=== PATIENT | female | born 1970 | race Caucasian/White ===

== ENCOUNTER → 2016-10-19 | Outpatient (CLI) | payer BC ==
[~2016-10-19] MED LIST: BACITAB3 PO; CLOB0.0548 TOP; CYMB1CAP5 PO; HYDR1TAB97 PO; LOW-TAB2 PO; PREM.6256 PO; PRIL40CA PO; TYLE325T5 PO; ZOFR20TA PO; [UNRECOGNIZED DRUG - CODE] PO
[2016-10-19 15:24] LABS: MEAN CORPUSCULAR HEMOGLOBIN 29.2 pg (27.0-33.0); MEAN CORPUSCULAR HGB CONC 33.8 g/dl (32.0-36.5); MEAN CORPUSCULAR VOLUME 86.4 fl (80.0-96.0); RED CELL DISTRIBUTION WIDTH 12.9 % (11.5-14.5); WHITE BLOOD COUNT 9.2 K/mm3 (4.0-10.0)
[2016-10-19 15:31] LABS: INR 0.92
== END ==
LOC: M LAB 14:53
PROVIDERS: ATTEND Physician Assistant Medical
DX: Q44.6 Cystic disease of liver (principal)

== ENCOUNTER → 2016-10-21 | Outpatient (CLI) | payer BC ==
[~2016-10-21] MED LIST changes: +ETHANOL ALCOHOL 98% INJ 5ML (DEHYDRATED) As Ordered ONE; +ISOVUE-300 61% 50ML VIAL (Q9967) As Ordered ONE; +LIDOCAINE 2% INJ 100 MG/5 ML SDV (FOR ANES.) As Ordered ONE; +LIDOCAINE 2% MDV 20 ML VIAL As Ordered ONE; +MIDAZOLAM INJ 2 MG/2 ML VIAL (J2250) As Ordered ONE; +MORPHINE 10 MG/ML 1ML VIAL As Ordered ONE; +NORCO, ANEXSIA 5/325MG TABLET (HYDROcodone/ACETAMINOPHEN) As Ordered ONE; +NORCO, ANEXSIA 5/325MG TABLET (HYDROcodone/ACETAMINOPHEN) PO ONE; +ONDANSETRON 4MG/2ML VIAL (J2405) IV PRN; +PROMETHAZINE INJ 25 MG/ML VIAL (J2550) As Ordered ONE; +PROMETHAZINE INJ 25 MG/ML VIAL (J2550) IV ONE; +PROPOFOL 200 MG/20 ML VIAL As Ordered ONE; +SODIUM BICARBONATE 8.4% INJ 50MEQ 50 ML VIAL As Ordered ONE; +dexameTHASONE 4 MG/ML 1ML VIAL (J1100) IV ONE; +fentaNYL 100 MCG/2 ML INJECTION (J3010) As Ordered ONE
--- NOTE | 2016-10-21 11:28 | REP ---
PORTABLE CHEST: AP portable view of the chest is performed. There is subsegmental atelectasis in each lung base. There is mild elevation of the right hemidiaphragm. There is no pneumothorax or acute infiltrate. Cardiomediastinal silhouette is unremarkable. IMPRESSION: No pneumothorax. Subsegmental atelectasis in the lung bases bilaterally. Signed by Long Go MD 10/21/2016 01:29 P
--- NOTE | 2016-10-21 11:48 | REPKIM ---
CLINICAL HISTORY: Large symptomatic enlarging right hepatic cyst. The patient presents for the right symptomatic hepatic cyst drainage catheter placement/ aspiration possible sclerotherapy. PROCEDURE PERFORMED: 1. Ultrasound of the liver 2. Right hepatic cyst drainage catheter placement and aspiration 3. Sinogram 4. Sclerotherapy of the right hepatic cyst INTERVENTIONALIST: June Lutz MD CONSENT: The risks, benefits and alternatives to the procedure were explained to the patient and informed written consent was obtained. SEDATION: Sedation and analgesia was provided by the Anesthesiology Dept. MEDICATIONS: Local Lidocaine 2% and absolute alcohol CONTRAST: 45 mL Isovue 300 EBL: 3 mL FLUORO TIME: 2.1 minutes DEVICE USED: 8.5F Resolve Catheter Lot #[id number] PROCEDURE: The patient was brought to the interventional radiology suite where a timeout procedure was performed. The patient was placed in the supine position. The right abdomen was prepped and draped in a usual sterile fashion. Ultrasound showed approximately 6.7cm hepatic cyst involving the right lobe of the liver below the dome of the liver. Local anesthetic was established using 2% Lidocaine. Using ultrasound guidance, a 21-gauge Accustick needle was introduced into the right hepatic cyst, after infiltration of the skin and deep tissues with local anesthetic. Using this access, an 8.5 Sinhala Resolve catheter was introduced. Its distal loop was formed in the cystic cavity. A total of approximately 120 mL of serosanguinous fluid was removed. A sample of the fluid was sent for c/s and cytology. Contrast was injected through the drainage catheter and DSA images were obtained. This showed the cyst cavity is loculated with no evidence of leak or communication with the adjacent structures , bile duct or vessels. The drainage catheter was then irrigated with saline/ local lidocaine and aspirated out. Alcohol 60 mL was then instilled into the cavity for 15 minutes. It was then aspirated out. The drainage catheter was flushed and connected to a gravity drainage bag. The catheter was secured using the Revolution device. The patient tolerated the procedure well with no immediate complications. This procedure was performed using ultrasound and fluoroscopy. Dr. Lutz was present. IMPRESSION: Successful symptomatic right hepatic cyst drainage catheter placement, aspiration and sclerotherapy as discussed above. Contrast injection demonstrates the cystic cavity is loculated with no evidence of leak or communication with the adjacent structures. PLAN: Upright CXR to rule out pneumothorax. The plan is for the patient to return to IR in next week for a follow up sinogram, possible catheter removal or intervention. Patient was instructed to record daily drainage output. cc: Noe Sheffield MD [facility]
[2016-10-21] MEDS: MORPHINE 4 MG/ML 1ML SYRINGE IV PRN ×2 (16:50→17:15)
[2016-10-21 17:30] VITALS: BP 152/82
== END | disposition home or self-care (01) ==
LOC: M IRPRO 07:25
PROVIDERS: ATTEND Internal Medicine Gastroenterology
DX: K76.89 Other specified diseases of liver (principal)
CPT/HCPCS: 49405; 71010; 87070; 87075; 87205; 88108; C1729; C1769; C1894; J1100; J2250; J2405; J3010; Q9967

== ENCOUNTER → 2016-10-25 | Outpatient (CLI) | payer BC ==
[~2016-10-25] MED LIST changes: -LIDOCAINE 2% INJ 100 MG/5 ML SDV (FOR ANES.) As Ordered ONE; -MIDAZOLAM INJ 2 MG/2 ML VIAL (J2250) As Ordered ONE; -MORPHINE 10 MG/ML 1ML VIAL As Ordered ONE; -NORCO, ANEXSIA 5/325MG TABLET (HYDROcodone/ACETAMINOPHEN) As Ordered ONE; -NORCO, ANEXSIA 5/325MG TABLET (HYDROcodone/ACETAMINOPHEN) PO ONE; -ONDANSETRON 4MG/2ML VIAL (J2405) IV PRN; -PROMETHAZINE INJ 25 MG/ML VIAL (J2550) As Ordered ONE; -PROMETHAZINE INJ 25 MG/ML VIAL (J2550) IV ONE; -PROPOFOL 200 MG/20 ML VIAL As Ordered ONE; -dexameTHASONE 4 MG/ML 1ML VIAL (J1100) IV ONE; -fentaNYL 100 MCG/2 ML INJECTION (J3010) As Ordered ONE
--- NOTE | 2016-10-26 16:20 | REPKIM ---
HISTORY: Large symptomatic hepatic cyst on the right. On last encounter an 8.5F drainage catheter placed into the right hepatic cyst and sclerotherapy performed on 10/21/16. The fluid sample cytology and culture were negative. The patient presents for hepatic drainage catheter check possible 2nd session sclerotherapy/catheter removal. Patient reports daily drainage output less than 10 mL. PROCEDURE: 1. Hepatic Cyst Catheter Check (Sinogram) 2. Hepatic Cyst Sclerotherapy and Catheter Removal INTERVENTIONALIST: Dr. June Lutz MEDICATIONS: Local lidocaine, Absolute alcohol CONTRAST: 5 mL Isovue 300 FLUORO TIME: 3.4 minutes EBL: less than 1mL PROCEDURE DETAILS: After appropriate consent was obtained and time out performed , the patient was placed in supine position on the angiographic table. The right hepatic cyst drainage catheter was prepped and draped in the usual sterile manner. Contrast was administered through the existing 8.5-Indian drainage catheter and images were obtained. This showed the catheter is patent with a satisfactory course and position. This also showed a residual cavity of at least 10 mL volume. No leak or fistula identified. The cavity was then irrigated with lidocainhe/saline and aspirated out Absolute alcohol 5 mL was then instilled into the cavity. It was then aspirated out. The drainage catheter was then unlocked and removed in its entirety. A sterile dressing was applied. The patient tolerated the procedure well with no immediate complications. This procedure was performed using fluoroscopy. IMPRESSION: S/P large symptomatic hepatic cyst drainage catheter check (sinogram ), sclerotherapy and catheter removal as discussed above. Dr. Lutz was present for the procedure as documented in the progress notes. cc: Noe Sheffield MD [facility]
== END | disposition home or self-care (01) ==
LOC: M IRPRO 11:10
DX: K76.89 Other specified diseases of liver (principal)
CPT/HCPCS: 49185; C1769; Q9967

== ENCOUNTER → 2016-11-18 | Outpatient (CLI) | payer BC ==
[~2016-11-18] MED LIST changes: -ETHANOL ALCOHOL 98% INJ 5ML (DEHYDRATED) As Ordered ONE; +HYDR-3713 PO; -HYDR1TAB97 PO; -ISOVUE-300 61% 50ML VIAL (Q9967) As Ordered ONE; -LIDOCAINE 2% MDV 20 ML VIAL As Ordered ONE; -SODIUM BICARBONATE 8.4% INJ 50MEQ 50 ML VIAL As Ordered ONE
--- NOTE | 2016-11-18 11:26 | REP ---
Right upper quadrant ultrasound: History: Cystic liver disease. Right upper quadrant pain. Comparison study is from July 24, 2014. It showed multiple liver cysts. Comparison chest CT study of the abdomen is from September 19, 2016. Findings: Scanning through the right upper quadrant of the abdomen demonstrates a small partially contracted appearing gallbladder without evidence of stone or polyp. Common bile duct is normal measuring 0.4 cm in greatest diameter. There are innumerable hepatic cysts again seen. These include a 3.5 cm cyst near the midline, a 3.1 cm cyst in the right lobe, and a 3.5 cm cyst at the dome. I note that the patient has undergone drainage and sclerotherapy for the largest cyst in the interval since the CT study. No liver mass lesion is appreciated. There is no evidence of ascites. Pancreas is unremarkable. The right kidney measures 12.8 x 5.8 x 6.1 cm. The right kidney has an extrarenal pelvis configuration. No hydronephrosis or renal mass lesion is seen. Impression: Multiple hepatic cysts. Otherwise negative. Signed by Jatin Choi MD 11/18/2016 11:46 A
== END ==
LOC: M RAD 06:45
PROVIDERS: ATTEND Physician Assistant Medical

== ENCOUNTER → 2017-02-02 | Outpatient (CLI) | payer BC ==
[2017-02-02 09:33] LABS: BASO % 0.4 % (0.0-1.0); EOS # 0.2 K/mm3 (0.0-0.50); LARGE UNSTAINED CELL # 0.1 K/mm3 (0.0-0.4); LARGE UNSTAINED CELL % 1.5 % (0.0-4.0); LYMPH % 24.7 % (24.0-44.0); MEAN CORPUSCULAR HEMOGLOBIN 29.1 pg (27.0-33.0); MEAN CORPUSCULAR HGB CONC 33.4 g/dl (32.0-36.5); MEAN CORPUSCULAR VOLUME 87.1 fl (80.0-96.0); MONO # 0.5 K/mm3 (0.0-0.8); MONO % 6.1 % (0.0-5.0); NEUTROPHILS # 5.3 K/mm3 (1.8-7.7); NEUTROPHILS % 65.3 % (36.0-66.0); PLATELET COUNT, AUTOMATED 328 k/mm3 (150-450); RED CELL DISTRIBUTION WIDTH 12.8 % (11.5-14.5); WHITE BLOOD COUNT 8.1 K/mm3 (4.0-10.0)
[2017-02-02 10:13] LABS: FREE T4 1.19 NG/DL (0.76-1.46)
[2017-02-02 10:16] LABS: FOLATE 11.7 NG/ML
== END ==
LOC: M LAB 08:49
PROVIDERS: ATTEND Physician Assistant
DX: R53.83 Other fatigue (principal); E55.9 Vitamin D deficiency, unspecified

== ENCOUNTER → 2017-02-02 | Outpatient (CLI) | payer BC ==
--- NOTE | 2017-02-02 10:43 | REP ---
RIGHT UPPER QUADRANT SONOGRAPHY: HISTORY: Cystic liver disease. Right upper quadrant pain. Comparison CT study September 19, 2016 and comparison sonography November 18, 2016. FINDINGS: Innumerable hepatic cysts are again seen on right upper quadrant scanning. The largest in the left lobe measures 3.8 x 4.0 x 2.3 cm. There is a cyst in the dome of the liver region which currently measures 2.6 x 1.6 x 2.0 cm. The patient gives a history of percutaneous drainage and sclerotherapy of a cyst. This may be a recurrent fluid in the cyst. Common bile duct is normal measuring 0.4 cm in diameter. No focal liver mass lesion is seen. Pancreas shows no abnormality. The pancreatic tail is obscured by abdominal gas. No free fluid is seen. The right kidney measures 12.6 x 6.4 x 5.5 cm. There is an extrarenal pelvis configuration noted. A suspected cyst is seen in the lower pole measuring 0.9 cm. IMPRESSION: Innumerable hepatic cysts as above. Signed by Jatin Choi MD 02/02/2017 12:40 P
== END ==
LOC: M RAD 07:56
PROVIDERS: ATTEND Physician Assistant Medical
DX: R10.11 Right upper quadrant pain (principal); Q44.6 Cystic disease of liver

== ENCOUNTER → 2017-02-06 | Outpatient (CLI) | payer BC ==
--- NOTE | 2017-02-09 09:17 | SLEEPHOME ---
DATE OF STUDY: 02/06/2017 ORDERING PROVIDER: Valdez Santiago PA-C Diagnostic home sleep testing was performed due to concern for the obstructive sleep apnea syndrome in this patient with excessive somnolence. For testing, a NOX-T3 respiratory monitoring device was used. Continuous record was made of pulse, oxygen saturation, airflow, chest and abdominal strain, and body position. 9 hours and 59 minutes of data were reviewed. Of these, 7 hours and 11 minutes were marked as time in bed. During the interval marked time in bed, there were 37 respiratory events identified of 10 seconds in duration or greater for a respiratory event index of 5.1. The events were primarily obstructive. Baseline pulse rate 84. Pulse rate ranged 66-115. Baseline saturation 92%. Lowest oxygen saturation reported 88%. Testing was performed in both the supine and nonsupine positions. IMPRESSION: Abnormal home sleep testing with repetitive respiratory events and oxygen desaturations to 88% with a respiratory event index of 5.1 is consistent with the obstructive sleep apnea syndrome. RECOMMENDATION: The patient should be encouraged to undergo formal sleep evaluation and in-laboratory pressure titration.
== END ==
LOC: M SLEEP HO 09:03
PROVIDERS: ATTEND Physician Assistant
DX: R40.0 Somnolence (principal); G47.9 Sleep disorder, unspecified

== ENCOUNTER → 2017-03-08 | Outpatient (CLI) | payer BC ==
[2017-03-10 00:06] LABS: Lyme Disease IgG/IgM Antibodie <0.91 ISR (0.00-0.90); Lyme Disease IgM Ab Quantitati <0.80 index (0.00-0.79)
== END ==
LOC: M LAB 09:34
PROVIDERS: ATTEND Physician Assistant
DX: R53.83 Other fatigue (principal)

== ENCOUNTER → 2017-07-17 | Outpatient (REF) | payer BC ==
[~2017-07-17] MED LIST changes: +BACITAB PO; -BACITAB3 PO; +D32000CA PO; -[UNRECOGNIZED DRUG - CODE] PO
== END ==
LOC: M LAB REF 16:42
PROVIDERS: ATTEND Physician Assistant
DX: R10.31 Right lower quadrant pain (principal)

== ENCOUNTER → 2017-07-25 | Outpatient (CLI) | payer BC ==
--- NOTE | 2017-07-26 04:50 | REP ---
Clinical: Abdominal pain with history of hepatic cysts. Comparison: 09/19/2016. Findings: Lung bases are clear. The liver again demonstrates innumerable cysts measuring up to 4 cm in the lateral segment left lobe and 3.7 cm in the posterior segment right lobe. The previously identified 6.7 cm cyst approaching the dome of the liver is not identified on current examination. Spleen, pancreas, gallbladder, and bilateral adrenal glands are normal. The kidneys demonstrate small bilateral hypodensities suggesting sub centimeter cysts and no evidence for hydronephrosis or perinephric stranding. The enteric system is without obstruction or acute inflammatory process. Colonic diverticula noted without acute diverticulitis. Normal terminal ileum and appendix identified in the right lower quadrant. Pelvis demonstrates normal bladder and age-appropriate uterus/adnexa. No pelvic fluid. No adenopathy. No mass lesion. Abdominal aorta without aneurysm. Musculoskeletal structures without focal osseous abnormality. Impression: 1. Previously noted 6.7 cm right hepatic cyst approaching the dome is not identified on current examination. Remainder of the hepatic cysts appear relatively stable and measure up to 4 cm. 2. Colonic diverticula without acute diverticulitis. 3. Cannot exclude bilateral subcentimeter renal cysts. 4. No further acute abdominopelvic pathology appreciated. Signed by Flo Helton MD 07/26/2017 04:41 A
== END ==
LOC: M RAD 09:45
PROVIDERS: ATTEND Family Medicine
DX: R10.31 Right lower quadrant pain (principal); K76.89 Other specified diseases of liver; K57.90 Diverticulosis of intestine, part unspecified, without perforation or abscess without bleeding

== ENCOUNTER → 2017-11-08 | Outpatient (CLI) | payer BC ==
[2017-11-08 07:38] LABS: BASO % 0.4 % (0.0-1.0); EOS # 0.2 10^3/uL (0.0-0.50); EOS % 2.2 % (0.0-3.0); HEMOGLOBIN 13.1 g/dl (12.0-16.0); IMMATURE GRANULOCYTE % 0.4 % (0-0); LYMPH # 2.1 10^3/uL (1.5-4.5); LYMPH % 23.6 % (24.0-44.0); MEAN CORPUSCULAR HGB CONC 33.6 g/dl (32.0-36.5); MEAN CORPUSCULAR VOLUME 86.3 fl (80.0-96.0); MONO # 0.7 10^3/uL (0.0-0.8); MONO % 7.7 % (0.0-5.0); NEUTROPHILS # 5.9 10^3/uL (1.8-7.7); NEUTROPHILS % 65.7 % (36.0-66.0); PLATELET COUNT, AUTOMATED 325 10^3/uL (150-450); RED BLOOD COUNT 4.52 10^6/uL (4.00-5.40); RED CELL DISTRIBUTION WIDTH 12.8 % (11.5-14.5)
[2017-11-08 08:09] LABS: ALBUMIN 3.6 GM/DL (3.2-5.2); ALBUMIN/GLOBULIN RATIO 1.06 (1.00-1.93); ALKALINE PHOSPHATASE 75 U/L (45-117); ALT/SGPT 21 U/L (12-78); ANION GAP 7 MEQ/L (8-16); AST/SGOT 14 U/L (7-37); BILIRUBIN,TOTAL 0.4 MG/DL (0.2-1.0); BLOOD UREA NITROGEN 12 MG/DL (7-18); CALCIUM LEVEL 9.2 MG/DL (8.5-10.1); CARBON DIOXIDE LEVEL 29 MEQ/L (21-32); CHLORIDE LEVEL 106 MEQ/L (98-107); CHOLESTEROL LEVEL 190 MG/DL (<200); CHOLESTEROL RISK RATIO 2.753 (<5); CREATININE FOR GFR 0.63 MG/DL (0.55-1.02); FREE T4 1.23 NG/DL (0.76-1.46); GLOMERULAR FILTRATION RATE > 60.0 (>58); GLUCOSE, FASTING 100 MG/DL (70-100); HDL CHOLESTEROL 69 MG/DL (>40); LDL CHOLESTEROL 101.2 MG/DL (<100); NON-HDL-C 121 MG/DL; POTASSIUM SERUM 4.1 MEQ/L (3.5-5.1); SODIUM LEVEL 142 MEQ/L (136-145); THYROID STIMULATING HORMONE 0.362 uIU/ML (0.358-3.740); TRIGLYCERIDES LEVEL 99 MG/DL (<150)
[2017-11-08 11:48] LABS: TOTAL 25(OH) VITAMIN D 23.5 NG/ML (30.0-100.0)
== END ==
LOC: M LAB 06:59
DX: Q44.6 Cystic disease of liver (principal); E66.09 Other obesity due to excess calories; M79.1 Myalgia; E55.9 Vitamin D deficiency, unspecified
CPT/HCPCS: 84443

== ENCOUNTER → 2017-11-08 | Outpatient (CLI) | payer BC | LOC: M RAD 16:34 | DX: E04.2 Nontoxic multinodular goiter (principal) | CPT/HCPCS: 76536 ==

== ENCOUNTER → 2017-11-16 | Outpatient (CLI) | payer BC ==
[~2017-11-16] MED LIST changes: -BACITAB PO; -CLOB0.0548 TOP; -CYMB1CAP5 PO; -D32000CA PO; -HYDR-3713 PO; +LIDOCAINE 1% MDV 20ML VIAL As Ordered; -LOW-TAB2 PO; -PREM.6256 PO; -PRIL40CA PO; -TYLE325T5 PO; -ZOFR20TA PO
== END ==
LOC: M RADPRO 12:43
DX: E04.1 Nontoxic single thyroid nodule (principal); Z88.8 Allergy status to other drugs, medicaments and biological substances; Z91.030 Bee allergy status; Z79.899 Other long term (current) drug therapy
CPT/HCPCS: 10022

== ENCOUNTER → 2017-11-29 | Outpatient (CLI) | payer BC ==
[2017-11-29 08:09] LABS: HEMATOCRIT 40.6 % (36.0-47.0); HEMOGLOBIN 13.7 g/dl (12.0-16.0); MEAN CORPUSCULAR HEMOGLOBIN 29.1 pg (27.0-33.0); MEAN CORPUSCULAR HGB CONC 33.7 g/dl (32.0-36.5); MEAN CORPUSCULAR VOLUME 86.2 fl (80.0-96.0); PLATELET COUNT, AUTOMATED 356 10^3/uL (150-450); RED BLOOD COUNT 4.71 10^6/uL (4.00-5.40); RED CELL DISTRIBUTION WIDTH 12.8 % (11.5-14.5)
[2017-11-29 08:26] LABS: ALBUMIN 3.9 GM/DL (3.2-5.2); ALBUMIN/GLOBULIN RATIO 1.08 (1.00-1.93); ALKALINE PHOSPHATASE 82 U/L (45-117); ALT/SGPT 24 U/L (12-78); ANION GAP 7 MEQ/L (8-16); AST/SGOT 17 U/L (7-37); BILIRUBIN,TOTAL 0.5 MG/DL (0.2-1.0); BLOOD UREA NITROGEN 12 MG/DL (7-18); CALCIUM LEVEL 9.5 MG/DL (8.5-10.1); CARBON DIOXIDE LEVEL 28 MEQ/L (21-32); CHLORIDE LEVEL 105 MEQ/L (98-107); CREATININE FOR GFR 0.61 MG/DL (0.55-1.30); GLOMERULAR FILTRATION RATE > 60.0 (>58); GLUCOSE, FASTING 97 MG/DL (70-100); POTASSIUM SERUM 4.2 MEQ/L (3.5-5.1); RHEUMATOID FACTOR QUANT < 10.0 IU/ML (0-15.0); SODIUM LEVEL 140 MEQ/L (136-145); TOTAL PROTEIN 7.5 GM/DL (6.4-8.2)
[2017-11-29 09:17] LABS: TOTAL 25(OH) VITAMIN D 24.7 NG/ML (30.0-100.0)
[2017-11-29 09:31] LABS: ERYTHROCYTE SEDIMENTATION RATE 39 mm/hr (0-20)
[2017-11-30 10:13] LABS: ANTINUCLEAR ANTIBODIES DIRECT Negative (Negative)
== END ==
LOC: M LAB 07:34
DX: M79.1 Myalgia (principal)

== ENCOUNTER → 2017-12-12 | Outpatient (CLI) | payer BC | LOC: M RAD 11:04 | DX: Z12.31 Encounter for screening mammogram for malignant neoplasm of breast (principal) | CPT/HCPCS: 77067 ==

== ENCOUNTER → 2018-02-19 | Outpatient (CLI) | payer BC | LOC: M RAD 07:09 | DX: Q44.6 Cystic disease of liver (principal) | CPT/HCPCS: 76705 ==

== ENCOUNTER → 2018-08-20 | Outpatient (CLI) | payer BC | LOC: M RAD 07:23 | DX: Q44.6 Cystic disease of liver (principal) | CPT/HCPCS: 76705 ==

== ENCOUNTER → 2018-08-31 | Outpatient (CLI) | payer BC ==
[2018-08-31 08:44] LABS: BASO # 0.1 10^3/uL (0.0-0.2); BASO % 0.6 % (0.0-1.0); EOS # 0.2 10^3/uL (0.0-0.50); EOS % 2.1 % (0.0-3.0); HEMATOCRIT 40.2 % (36.0-47.0); HEMOGLOBIN 13.6 g/dl (12.0-15.5); IMMATURE GRANULOCYTE % 0.5 % (0-3.0); LYMPH # 2.3 10^3/uL (1.5-4.5); LYMPH % 26.5 % (24.0-44.0); MEAN CORPUSCULAR HEMOGLOBIN 29.6 pg (27.0-33.0); MEAN CORPUSCULAR HGB CONC 33.8 g/dl (32.0-36.5); MEAN CORPUSCULAR VOLUME 87.6 fl (80.0-96.0); MONO # 0.6 10^3/uL (0.0-0.8); MONO % 6.9 % (0.0-5.0); NEUTROPHILS # 5.6 10^3/uL (1.8-7.7); NEUTROPHILS % 63.4 % (36.0-66.0); PLATELET COUNT, AUTOMATED 346 10^3/uL (150-450); RED BLOOD COUNT 4.59 10^6/uL (4.00-5.40); RED CELL DISTRIBUTION WIDTH 13.2 % (11.5-14.5); WHITE BLOOD COUNT 8.8 10^3/uL (4.0-10.0)
[2018-08-31 09:09] LABS: C REACTIVE PROTEIN QUANTITATIV 0.83 MG/DL (0.00-0.30)
[2018-08-31 09:11] LABS: ERYTHROCYTE SEDIMENTATION RATE 34 mm/hr (0-20)
== END ==
LOC: M LAB 07:44
DX: L40.50 Arthropathic psoriasis, unspecified (principal)
CPT/HCPCS: 86140

== ENCOUNTER 2018-11-28 07:54 | Emergency (ER) | payer BC ==
[~2018-11-28] VITALS: Ht 160 cm; Wt 88.6 kg
[~2018-11-28 07:54] MED LIST changes: +BACITAB PO; +CLOB0.0548 TOP; +CYMB1CAP5 PO; +D32000CA PO; +HYDR-3713 PO; -LIDOCAINE 1% MDV 20ML VIAL As Ordered; +LOW-1TAB2 PO; +PREM.6256 PO; +PRIL40CA PO; +TYLE325T5 PO; +ZOFR4TAB16 PO
[2018-11-28] MEDS ORDERED: OMEP40CA2 (08:20)
[2018-11-28] MEDS ORDERED: MUPI2OI (08:20)
[2018-11-28 08:43] LABS: BASO % 0.5 % (0.0-1.0); EOS # 0.2 10^3/uL (0.0-0.50); EOS % 2.2 % (0.0-3.0); HEMATOCRIT 39.4 % (36.0-47.0); HEMOGLOBIN 13.4 g/dl (12.0-15.5); LYMPH # 2.5 10^3/uL (1.5-4.5); LYMPH % 31.2 % (24.0-44.0); MEAN CORPUSCULAR HEMOGLOBIN 29.4 pg (27.0-33.0); MEAN CORPUSCULAR VOLUME 86.4 fl (80.0-96.0); MONO # 0.8 10^3/uL (0.0-0.8); MONO % 9.4 % (0.0-5.0); NEUTROPHILS # 4.6 10^3/uL (1.8-7.7); NEUTROPHILS % 56.1 % (36.0-66.0); PLATELET COUNT, AUTOMATED 344 10^3/uL (150-450); RED BLOOD COUNT 4.56 10^6/uL (4.00-5.40); WHITE BLOOD COUNT 8.2 10^3/uL (4.0-10.0)
[2018-11-28 09:17] LABS: ALBUMIN 3.8 GM/DL (3.2-5.2); ALT/SGPT 23 U/L (12-78); BILIRUBIN,TOTAL 0.4 MG/DL (0.2-1.0); BLOOD UREA NITROGEN 13 MG/DL (7-18); CALCIUM LEVEL 9.4 MG/DL (8.5-10.1); CARBON DIOXIDE LEVEL 27 MEQ/L (21-32); CHLORIDE LEVEL 106 MEQ/L (98-107); CREATININE FOR GFR 0.68 MG/DL (0.55-1.30); GLOMERULAR FILTRATION RATE > 60.0 (>58); GLUCOSE, FASTING 109 MG/DL (70-100); POTASSIUM SERUM 4.2 MEQ/L (3.5-5.1); SODIUM LEVEL 140 MEQ/L (136-145); TOTAL PROTEIN 6.8 GM/DL (6.4-8.2)
--- NOTE | 2018-11-28 09:25 | REP ---
CT Head without contrast HISTORY: Dizziness COMPARISON: None There is no intraparenchymal hemorrhage, acute infarct, mass or midline shift. The ventricular system is normal in appearance. There is no extra cerebral collection. There is no fracture. The visualized sinuses are clear. IMPRESSION: There is no intracranial lesion. Electronically Signed by Ivan Mathur MD 11/28/2018 09:18 A
[2018-11-28] MEDS ORDERED: LORazepam 2 MG TAB PO STA (09:34)
[2018-11-28 10:00] LABS: C REACTIVE PROTEIN QUANTITATIV 0.49 MG/DL (0.00-0.30); RHEUMATOID FACTOR QUANT < 10.0 IU/ML (<15.0); THYROID STIMULATING HORMONE 0.524 uIU/ML (0.358-3.740)
[2018-11-28 10:09] LABS: ERYTHROCYTE SEDIMENTATION RATE 29 mm/hr (0-20)
[2018-11-28 10:46] LABS: CPK CREATINE PHOSPHOKINASE 110 U/L (26-192); MB/CK RELATIVE INDEX 1.45 (< OR =4); TROPONIN I < 0.02 NG/ML (< 0.10)
[2018-11-28] MEDS ORDERED: ATIV1TAB10 PO (12:52)
[2018-11-28 13:13] VITALS: BP 117/74
--- NOTE | 2018-11-28 17:10 | ECGEPIP ---
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
[2018-11-29 18:42] LABS: ANTINUCLEAR ANTIBODIES DIRECT Negative (Negative); Lyme Disease IgG/IgM Antibodie <0.91 ISR (0.00-0.90); Lyme Disease IgM Ab Quantitati <0.80 index (0.00-0.79)
[2018-11-30 00:08] LABS: CYCLIC CITRULLINATED PEPTIDE 9 units (0-19)
== END 2018-11-28 13:27 | disposition home or self-care (01) ==
LOC: M ED 07:54
DX: R03.0 Elevated blood-pressure reading, without diagnosis of hypertension (principal); F41.0 Panic disorder [episodic paroxysmal anxiety]; R21 Rash and other nonspecific skin eruption; L40.50 Arthropathic psoriasis, unspecified; J45.909 Unspecified asthma, uncomplicated; F17.200 Nicotine dependence, unspecified, uncomplicated; Z88.8 Allergy status to other drugs, medicaments and biological substances; Z79.899 Other long term (current) drug therapy

== ENCOUNTER → 2019-02-13 | Outpatient (REF) | payer BC ==
[~2019-02-13] MED LIST changes: +ATIV1TAB10 PO; +MUPI2OI; +OMEP40CA2
[2019-02-13 12:08] LABS: C REACTIVE PROTEIN QUANTITATIV 0.37 MG/DL (0.00-0.30); TOTAL PROTEIN 7.1 GM/DL (6.4-8.2)
[2019-02-13 12:21] LABS: HEMOGLOBIN A1c 5.6 %
[2019-02-14 13:42] LABS: ALBUMIN 4.17 GM/DL (3.29-5.55); ALBUMIN % 58.8 % (55.8-66.1); ALPHA-1-GLOBULIN % 4.8 % (2.9-4.9); ALPHA-1-GLOBULINS 0.34 GM/DL (0.17-0.41); ALPHA-2-GLOBULINS 0.77 GM/DL (0.42-0.99); ALPHA-2-GLOBULINS % 10.9 % (7.1-11.8); BETA-1-GLOBULINS 0.45 GM/DL (0.28-0.60); BETA-1-GLOBULINS % 6.4 % (4.7-7.2); BETA-2-GLOBULINS 0.41 GM/DL (0.19-0.55); BETA-2-GLOBULINS % 5.8 % (3.2-6.5); GAMMA GLOBULIN % 13.3 % (11.1-18.8)
[2019-02-14 13:43] LABS: GAMMA GLOBULINS 0.94 GM/DL (0.65-1.58)
[2019-02-15 14:11] LABS: ANTI-SACCHAROMYCES CEREV. IgA <20.0 Units (0.0-24.9); ANTI-SACCHAROMYCES CEREV. IgG <20.0 Units (0.0-24.9)
[2019-02-19 00:06] LABS: ANCA-ATYPICAL <1:20 titer (Neg:<1:20); CYTOPLASMIC NEUTROP AB ANCA-C <1:20 titer (Neg:<1:20); HLA-B27 Negative (.); PERINUCLEAR AB ANCA-P <1:20 titer (Neg:<1:20)
== END ==
LOC: M SFHCPLAZ 09:07
PROVIDERS: ATTEND Internal Medicine Rheumatology
DX: M54.9 Dorsalgia, unspecified (principal); R53.83 Other fatigue; Z87.19 Personal history of other diseases of the digestive system

== ENCOUNTER → 2019-02-18 | Outpatient (CLI) | payer BC ==
--- NOTE | 2019-02-19 02:01 | REP ---
Clinical: Ankle pain. Technique: AP, lateral, bilateral oblique views of the right and left ankle. Findings: Right and left ankle appear relatively normal for age with only mild generalized degenerative changes noted including small spur along the left ankle medial malleolus. No acute fracture dislocation. Ankle mortise and joint spaces are intact and essentially normal bilaterally. Surrounding soft tissues are unremarkable. Impression: Generalized age-related changes with small spur along the left medial malleolus. Electronically Signed by Flo Helton MD 02/19/2019 01:53 A
--- NOTE | 2019-02-19 02:18 | REP ---
Clinical: Back pain. Technique: Four total views of the sacroiliac joints. Findings: Bilateral sacroiliac joints are symmetric and normal for age. No arthritic or degenerative changes are appreciated. There is no evidence for acute fracture or subluxation. Phleboliths noted in the pelvis. Impression: Symmetric age-appropriate sacroiliac joints. Electronically Signed by Flo Helton MD 02/19/2019 02:09 A
== END ==
LOC: M RAD 13:26
PROVIDERS: ATTEND Internal Medicine Rheumatology
DX: M54.9 Dorsalgia, unspecified (principal); M25.579 Pain in unspecified ankle and joints of unspecified foot

== ENCOUNTER → 2019-02-27 | Outpatient (REF) | payer BC | LOC: M LAB REF 13:19 | PROVIDERS: ATTEND Specialist | DX: Z12.4 Encounter for screening for malignant neoplasm of cervix (principal) ==

== ENCOUNTER → 2019-03-15 | Outpatient (RCR) | payer BC | LOC: M PT 12:05 | PROVIDERS: ATTEND Physician Assistant | DX: M54.16 Radiculopathy, lumbar region (principal) | CPT/HCPCS: 97140; 97161; G0283 ==

== ENCOUNTER 2019-04-08 12:45 | Outpatient (RCR) | payer BC | END 2019-04-14 | LOC: M PT 12:45 | PROVIDERS: ATTEND Physician Assistant | DX: M54.16 Radiculopathy, lumbar region (principal) | CPT/HCPCS: 97010; 97032; 97110; 97140; G0283 ==

== ENCOUNTER → 2019-07-02 | Outpatient (CLI) | payer BC ==
[~2019-07-02] MED LIST changes: -OMEP40CA2; +OMEP40CA97
--- NOTE | 2019-07-02 11:48 | REPMRS ---
Patient History The patient states she had a clinical breast exam in 2018. Patient is postmenopausal. 3D TOMOSYNTHESIS WAS PERFORMED. [facility] lifetime risk for breast cancer is 8.1%. Digital Mammo Screening Bilat: July 02, 2019 - Exam #: [id number] Bilateral CC and MLO view(s) were taken. Technologist: Abby Kumari, Technologist Prior study comparison: December 12, 2017, bilateral digital mammo screening bilat performed at [facility]. August 13, 2016, bilateral digital mammo screening bilat performed at [facility]. FINDINGS: The breast tissue is heterogeneously dense. This may lower the sensitivity of mammography. There has been no change in the appearance of the mammogram from the prior studies. There is a moderate amount of residual fibroglandular tissue which is fairly symmetric. There is no interval development of dominant mass, areas of architectural distortion, or clustered microcalcification typical of malignancy. Assessment: BI-RADS/ACR category 1 mammogram. Negative Mammogram. Recommendation Routine screening mammogram in 1 year (for women over age 40). This mammogram was interpreted with the aid of an FDA-approved computer-aided dectection system. Electronically Signed By: Long Go MD 07/02/19 [id number]
== END ==
LOC: M RAD 09:20
PROVIDERS: ATTEND Family Medicine
DX: Z12.31 Encounter for screening mammogram for malignant neoplasm of breast (principal)

== ENCOUNTER → 2019-08-08 | Outpatient (CLI) | payer BC ==
[~2019-08-08] MED LIST changes: +GASTROGRAFIN SOLUTION 30ML (Q9963) As Ordered ONE; +ISOVUE-370 76% 100ML VIAL (Q9967) As Ordered ONE
--- NOTE | 2019-08-09 15:12 | REP ---
HISTORY: Followup hepatic cysts. COMPARISON: All priors were reviewed, the latest a noncontrast enhanced examination and the latest contrast enhanced examination 09/19/2016. CONTRAST: 100 mL Isovue-370. The lung bases are clear and unchanged. Once again, note is made of multiple hepatic cysts. They are unchanged from the latest prior 07/25/2017, although no contrast was administered for that exam. The spleen, pancreas, adrenal glands and kidneys are within normal limits. The abdominal aorta and periaortic regions are within normal limits. There is no free fluid or free air in the abdomen. There is no intra-abdominal mass or adenopathy. The bowel loops and the mesenteries are within normal limits. There are scattered descending colon diverticula, status quo. CT PELVIS: There is no mass or adenopathy. There is no free fluid or free air. There is sigmoid colon diverticulosis. Seen in the left adnexa, there is a round low density structure which measures 2.3 cm and has water density Hounsfield unit readings consistent with a small left ovarian cyst or dominant left ovarian follicle. Bone window technique throughout the examination shows the osseous structures to be stable and intact. IMPRESSION: Hepatic cysts. Electronically Signed by Juan Carlos Padilla DO 08/09/2019 04:23 P
== END ==
LOC: M RAD 10:51
PROVIDERS: ATTEND Physician Assistant Medical
DX: Q44.6 Cystic disease of liver (principal)
CPT/HCPCS: 74177; Q9963; Q9967

== ENCOUNTER → 2020-03-12 | Outpatient (CLI) | payer BC ==
[~2020-03-12] MED LIST changes: -GASTROGRAFIN SOLUTION 30ML (Q9963) As Ordered ONE; -ISOVUE-370 76% 100ML VIAL (Q9967) As Ordered ONE
--- NOTE | 2020-03-12 17:42 | REP ---
Clinical: Hypertension . Comparison: 10/21/2016 . Technique: PA and lateral. Findings: The mediastinum and cardiac silhouette are normal. The lung bailey are clear and without acute consolidation, effusion, or pneumothorax. The skeletal structures are intact and normal. Impression: 1. No acute cardiopulmonary process. Electronically Signed by Flo Helton MD 03/12/2020 05:34 P
== END ==
LOC: M CLY 15:20
PROVIDERS: ATTEND Family Medicine
DX: R10.11 Right upper quadrant pain (principal); R03.0 Elevated blood-pressure reading, without diagnosis of hypertension; R73.01 Impaired fasting glucose

== ENCOUNTER → 2020-03-12 | Outpatient (REF) | payer BC ==
[2020-03-13 11:38] LABS: BASO # 0.1 10^3/uL (0.0-0.2); BASO % 0.6 % (0.0-1.0); EOS # 0.2 10^3/uL (0.0-0.5); EOS % 2.3 % (0.0-3.0); HEMATOCRIT 42.7 % (36.0-47.0); HEMOGLOBIN 13.8 g/dl (12.0-15.5); LYMPH # 2.4 10^3/uL (1.5-5.0); LYMPH % 25.5 % (24.0-44.0); MEAN CORPUSCULAR HEMOGLOBIN 29.3 pg (27.0-33.0); MEAN CORPUSCULAR HGB CONC 32.3 g/dl (32.0-36.5); MEAN CORPUSCULAR VOLUME 90.7 fl (80.0-96.0); MONO # 0.7 10^3/uL (0.0-0.8); MONO % 7.4 % (0.0-5.0); NEUTROPHILS % 63.9 % (36.0-66.0); PLATELET COUNT, AUTOMATED 394 10^3/uL (150-450); RED BLOOD COUNT 4.71 10^6/uL (4.00-5.40); WHITE BLOOD COUNT 9.4 10^3/uL (4.0-10.0)
[2020-03-13 11:53] LABS: ALBUMIN 3.8 GM/DL (3.2-5.2); ALT/SGPT 25 U/L (12-78); AMYLASE 44 U/L (25-115); BILIRUBIN,TOTAL 0.5 MG/DL (0.2-1.0); BLOOD UREA NITROGEN 11 MG/DL (7-18); CALCIUM LEVEL 9.3 MG/DL (8.5-10.1); CARBON DIOXIDE LEVEL 28 MEQ/L (21-32); CHLORIDE LEVEL 108 MEQ/L (98-107); CHOLESTEROL LEVEL 225 MG/DL (<200); CHOLESTEROL RISK RATIO 3.813 (<5); CREATININE FOR GFR 0.79 MG/DL (0.55-1.30); GLOMERULAR FILTRATION RATE > 60.0 (>51); GLUCOSE, FASTING 102 MG/DL (70-100); HDL CHOLESTEROL 59 MG/DL (>40); LDL CHOLESTEROL 123 MG/DL (<100); LIPASE 167 U/L (73-393); NON-HDL-C 166 MG/DL; POTASSIUM SERUM 3.7 MEQ/L (3.5-5.1); SODIUM LEVEL 141 MEQ/L (136-145); TOTAL PROTEIN 7.1 GM/DL (6.4-8.2); TRIGLYCERIDES LEVEL 215 MG/DL (<150)
[2020-03-13 11:57] LABS: HEMOGLOBIN A1c 5.5 %
== END ==
LOC: M SFHCCLAY 15:12
PROVIDERS: ATTEND Family Medicine
DX: R03.0 Elevated blood-pressure reading, without diagnosis of hypertension (principal); K76.89 Other specified diseases of liver; R73.01 Impaired fasting glucose; R10.11 Right upper quadrant pain

== ENCOUNTER 2020-08-24 11:26 | Emergency (ER) | payer BC ==
[~2020-08-24] VITALS: Ht 160 cm; Wt 81.8 kg
[2020-08-24] MEDS ORDERED: NS 1,000 ML IV ONE (11:45)
--- NOTE | 2020-08-24 12:09 | REP ---
INDICATION: cough. COMPARISON: 03/12/2020 TECHNIQUE: Portable seated chest FINDINGS: Lungs are well inflated without pleural effusion acute infiltrate atelectasis or mass. The heart, mediastinal hilar contours are normal. The aorta and airway are intact. The bony thorax shows no focal lesion. There is no free air under the diaphragm. IMPRESSION: 1. No acute cardiopulmonary change. Stable chest. <Electronically signed by Garrett Peralta > 08/24/20 [id number]
[2020-08-24 13:59] LABS: ALBUMIN 3.6 GM/DL (3.2-5.2); BILIRUBIN,DIRECT 0.1 MG/DL (0.0-0.2); BILIRUBIN,TOTAL 0.5 MG/DL (0.2-1.0)
[2020-08-24] MEDS ORDERED: POTASSIUM CHLORIDE 10 MEQ SR TABLET PO ONE (14:30)
[2020-08-24 15:45] VITALS: BP 134/80
--- NOTE | 2020-08-25 00:49 | ECGEPIP ---
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
== END 2020-08-24 16:26 | disposition home or self-care (01) ==
LOC: M ED 11:26
DX: R51.9 Headache, unspecified (principal); B97.29 Other coronavirus as the cause of diseases classified elsewhere; F33.9 Major depressive disorder, recurrent, unspecified; Z79.899 Other long term (current) drug therapy; Z88.8 Allergy status to other drugs, medicaments and biological substances

== ENCOUNTER → 2020-09-08 | Outpatient (REF) | payer BC ==
[2020-09-08 16:30] LABS: BASO % 0.5 % (0.0-1.0); EOS # 0.1 10^3/uL (0.0-0.5); EOS % 0.8 % (0.0-3.0); HEMOGLOBIN 12.5 g/dl (12.0-15.5); LYMPH % 22.6 % (24.0-44.0); MEAN CORPUSCULAR HEMOGLOBIN 29.4 pg (27.0-33.0); MEAN CORPUSCULAR HGB CONC 32.9 g/dl (32.0-36.5); MEAN CORPUSCULAR VOLUME 89.4 fl (80.0-96.0); MONO # 0.7 10^3/uL (0.0-0.8); MONO % 7.9 % (0.0-5.0); NEUTROPHILS # 5.9 10^3/uL (1.5-8.5); NEUTROPHILS % 67.6 % (36.0-66.0); PLATELET COUNT, AUTOMATED 340 10^3/uL (150-450); RED BLOOD COUNT 4.25 10^6/uL (4.00-5.40); WHITE BLOOD COUNT 8.6 10^3/uL (4.0-10.0)
[2020-09-08 16:36] LABS: ALBUMIN 3.6 GM/DL (3.2-5.2); ALT/SGPT 20 U/L (12-78); BILIRUBIN,TOTAL 0.6 MG/DL (0.2-1.0); BLOOD UREA NITROGEN 6 MG/DL (7-18); CALCIUM LEVEL 9.5 MG/DL (8.5-10.1); CARBON DIOXIDE LEVEL 30 MEQ/L (21-32); CHLORIDE LEVEL 107 MEQ/L (98-107); CREATININE FOR GFR 0.65 MG/DL (0.55-1.30); GLOMERULAR FILTRATION RATE > 60.0 (>51); GLUCOSE, FASTING 99 MG/DL (70-100); POTASSIUM SERUM 4.2 MEQ/L (3.5-5.1); SODIUM LEVEL 142 MEQ/L (136-145); TOTAL PROTEIN 6.9 GM/DL (6.4-8.2)
== END ==
LOC: M SFHCCLAY 10:06
PROVIDERS: ATTEND Family Medicine
DX: G93.3 Postviral and related fatigue syndromes (principal); R11.0 Nausea

== ENCOUNTER → 2020-09-16 | Outpatient (CLI) | payer BC ==
--- NOTE | 2020-09-16 08:10 | REP ---
INDICATION: CYSTIC DISEASE OF LIVER. COMPARISON: Comparison CT study August 08, 2019. Comparison sonography 20 August 2018.. TECHNIQUE: Right upper quadrant sonography. FINDINGS: Scanning through the right upper quadrant of the abdomen demonstrates a normal sized liver containing multiple anechoic cysts as noted on previous CT and ultrasound imaging. These appear cyst anechoic, well-circumscribed with enhanced through transmission consistent with benign simple cysts. The 2 largest of these in the left lobe measure 4.3 and 5.9 cm in greatest diameter respectively. In the right lobe, the 2 largest cysts measure 4.5 and 4.9 cm in greatest diameter. And cystic disease appears essentially unchanged. Scanning demonstrates a normal sized and walled gallbladder without evidence of stone or polyp. Common bile duct is normal measuring 0.4 cm in greatest diameter. No hepatic mass lesion is seen. The tail of the pancreas is obscured by abdominal gas. The pancreas is otherwise unremarkable. No right renal abnormality is noted. The right kidney measures 12.0 x 6.0 x 5.3 cm. No free fluid is seen.. IMPRESSION: Multiple up attic cysts again noted essentially unchanged. Otherwise negative right upper quadrant sonography.. <Electronically signed by Polo Choi > 09/16/20 [id number]
== END ==
LOC: M RAD 07:19
PROVIDERS: ATTEND Physician Assistant Medical
DX: Q44.6 Cystic disease of liver (principal)

== ENCOUNTER 2021-01-16 13:31 | Emergency (ER) | payer BC ==
[~2021-01-16] VITALS: Ht 160 cm; Wt 84.1 kg
[2021-01-16 13:31] VITALS: BP 137/79
[2021-01-16] MEDS ORDERED: LISI-898 (13:37)
[2021-01-16] MEDS ORDERED: OMEP-221 (13:37)
[2021-01-16] MEDS ORDERED: DULO1CAP5 (13:37)
[2021-01-16] MEDS ORDERED: KETOROLAC 30 MG/ML 1ML VIAL IV ONE (14:15)
[2021-01-16] MEDS ORDERED: NS 1,000 ML IV ONE (14:15)
[2021-01-16] MEDS ORDERED: ONDANSETRON 4MG/2ML VIAL IV ONE (14:15)
[2021-01-16 14:39] LABS: BASO # 0.1 10^3/uL (0.0-0.2); BASO % 0.6 % (0.0-1.0); EOS # 0.1 10^3/uL (0.0-0.5); EOS % 0.7 % (0.0-3.0); HEMATOCRIT 40.2 % (36.0-47.0); HEMOGLOBIN 13.4 g/dl (12.0-15.5); LYMPH # 1.7 10^3/uL (1.5-5.0); LYMPH % 20.4 % (24.0-44.0); MEAN CORPUSCULAR HEMOGLOBIN 29.2 pg (27.0-33.0); MEAN CORPUSCULAR HGB CONC 33.3 g/dl (32.0-36.5); MEAN CORPUSCULAR VOLUME 87.6 fl (80.0-96.0); MONO # 0.6 10^3/uL (0.0-0.8); MONO % 7.4 % (2.0-8.0); NEUTROPHILS # 5.8 10^3/uL (1.5-8.5); NEUTROPHILS % 70.5 % (36.0-66.0); PLATELET COUNT, AUTOMATED 341 10^3/uL (150-450); RED BLOOD COUNT 4.59 10^6/uL (4.00-5.40); WHITE BLOOD COUNT 8.3 10^3/uL (4.0-10.0)
[2021-01-16] MEDS ORDERED: ISOVUE-370 76% 100ML VIAL As Ordered ONE (14:43)
[2021-01-16 15:11] LABS: ALBUMIN 3.7 GM/DL (3.2-5.2); ALT/SGPT 18 U/L (12-78); BILIRUBIN,DIRECT 0.1 MG/DL (0.0-0.2); BILIRUBIN,TOTAL 0.4 MG/DL (0.2-1.0); CK-MB VALUE MASS 1.1 NG/ML (<3.6); CPK CREATINE PHOSPHOKINASE 88 U/L (26-192); LIPASE 111 U/L (73-393); MB/CK RELATIVE INDEX 1.25 (< OR =4); TOTAL PROTEIN 6.9 GM/DL (6.4-8.2); TROPONIN I < 0.02 NG/ML (< 0.10)
--- NOTE | 2021-01-16 15:24 | REP ---
INDICATION: ruq pain. COMPARISON: Abdomen/pelvis CT dated 08/08/2019. TECHNIQUE: Abdomen/pelvis CT with IV contrast, without bowel contrast. FINDINGS: The visualized lung bailey are unremarkable. There are multiple hepatic cysts, similar to the prior study. The gallbladder, pancreas and spleen are unremarkable and unchanged. The adrenals and kidneys are unremarkable. The abdominal aorta is unremarkable. There is no periaortic adenopathy or mass. The bowel and mesentery are unremarkable except for sigmoid diverticulosis without diverticulitis. This is unchanged. Pelvis: The appendix is unremarkable. The uterus and adnexa are unremarkable. The previous left adnexal cyst has involuted. There is no adenopathy or ascites. The bladder is unremarkable. IMPRESSION: Hepatic cysts, unchanged. Sigmoid diverticulosis without diverticulitis. Otherwise, negative abdomen/pelvis CT. <Electronically signed by Long Zarate > 01/16/21 [id number]
[2021-01-16] MEDS ORDERED: ONDA4TAB6 PO (15:41)
== END 2021-01-16 15:56 | disposition home or self-care (01) ==
LOC: M ED 13:31
DX: R10.11 Right upper quadrant pain (principal); R11.2 Nausea with vomiting, unspecified; R19.7 Diarrhea, unspecified; K76.89 Other specified diseases of liver; I10 Essential (primary) hypertension; J45.909 Unspecified asthma, uncomplicated; F41.9 Anxiety disorder, unspecified; Z79.899 Other long term (current) drug therapy; Z88.8 Allergy status to other drugs, medicaments and biological substances; Z87.19 Personal history of other diseases of the digestive system; Z98.890 Other specified postprocedural states
CPT/HCPCS: 74177; 80047; 80076; 81001; 82550; 82553; 83690; 84484; 85025; 96374; 96375; 99283; J1885; J2405; Q9967

== ENCOUNTER → 2021-05-04 | Outpatient (REF) | payer BC ==
[~2021-05-04] MED LIST changes: +DULO1CAP5; +LISI-898; +OMEP-221; +OMEP40CA4; -OMEP40CA97; +ONDA4TAB6 PO
== END ==
LOC: M SFHCCLAY 16:03
PROVIDERS: ATTEND Physician Assistant
DX: R19.7 Diarrhea, unspecified (principal)

== ENCOUNTER → 2021-06-11 | Outpatient (CLI) | payer BC ==
--- NOTE | 2021-06-11 11:23 | REP ---
INDICATION: RUQ PAIN. COMPARISON: None. TECHNIQUE/RADIOTRACER AND DOSE: After the intravenous administration of 6.6 mCi of technetium 99 M Choletec hepatobiliary imaging was performed with gallbladder ejection fraction calculation. FINDINGS: There are multiple photopenic defects seen in the liver consistent with the patient's ultrasonographic evidence and CT evidence of multiple hepatic cysts. There is prompt visualization of the gallbladder at 20 minutes. Biliary to bowel transit is at 20 minutes. The gallbladder ejection fraction calculation is 45% which is within normal limits. IMPRESSION: Hepatic cysts. Gallbladder ejection fraction within normal limits. Findings as described above. <Electronically signed by Juan Carlos Padilla > 06/11/21 1115
== END ==
LOC: M RAD 08:21
PROVIDERS: ATTEND Physician Assistant
DX: K76.89 Other specified diseases of liver (principal); R10.11 Right upper quadrant pain
CPT/HCPCS: 78227; A9537

== ENCOUNTER → 2021-10-11 | Outpatient (REF) | payer BC ==
[~2021-10-11] MED LIST changes: -LISI-898; +LISI5TAB11; -OMEP-221; +OMEP40CA5
[2021-10-11 15:20] LABS: APPEARANCE, URINE HAZY (CLEAR); BACTERIA, URINE AUTO 2+ (NEGATIVE); BILIRUBIN, URINE AUTO NEGATIVE (NEGATIVE); BLOOD, URINE BLOOD 3+ (NEGATIVE); COLOR, URINE YELLOW (YELLOW); GLUCOSE, URINE (UA) AUTO NEGATIVE (NEGATIVE); KETONE, URINE AUTO NEGATIVE (NEGATIVE); LEUKOCYTE ESTERASE, URINE AUTO 1+ (NEGATIVE); MUCUS, URINE SMALL (NEGATIVE); NITRITE, URINE AUTO NEGATIVE (NEGATIVE); PROTEIN, URINE AUTO NEGATIVE (NEGATIVE); RBC, URINE AUTO 12 /HPF (0-3); SPECIFIC GRAVITY URINE AUTO 1.006 (1.002-1.035); SQUAMOUS EPITHELIAL CELL UR AU 0 /HPF (0-6); UROBILINOGEN, URINE AUTO 0.2 mg/dL (0.0-2.0); WBC, URINE AUTO 26 /HPF (0-3)
== END ==
LOC: M SFHCPLAZ 14:52
PROVIDERS: ATTEND Family Medicine
DX: R30.0 Dysuria (principal)

== ENCOUNTER → 2021-12-06 | Outpatient (CLI) | payer BC ==
[2021-12-06 17:15] LABS: BLOOD UREA NITROGEN 13 MG/DL (7-18); CREATININE FOR GFR 0.71 MG/DL (0.55-1.30); GLOMERULAR FILTRATION RATE > 60.0 (>51)
== END ==
LOC: M LAB 16:18
PROVIDERS: ATTEND Internal Medicine Gastroenterology
DX: R10.11 Right upper quadrant pain (principal); K21.9 Gastro-esophageal reflux disease without esophagitis

== ENCOUNTER → 2021-12-07 | Outpatient (CLI) | payer BC ==
[~2021-12-07] MED LIST changes: +PROHANCE 279.3MG/ML 15ML VIAL As Ordered ONE; +PROHANCE 279.3MG/ML 5ML VIAL As Ordered ONE
== END ==
LOC: M RAD 08:57
PROVIDERS: ATTEND Physician Assistant Medical
DX: N28.1 Cyst of kidney, acquired (principal); Q44.6 Cystic disease of liver
CPT/HCPCS: 74183; A9576

== ENCOUNTER → 2021-12-14 | Outpatient (REF) | payer BC ==
[~2021-12-14] MED LIST changes: -PROHANCE 279.3MG/ML 15ML VIAL As Ordered ONE; -PROHANCE 279.3MG/ML 5ML VIAL As Ordered ONE
[2021-12-14 17:12] LABS: BASO # 0.1 10^3/uL (0.0-0.2); BASO % 0.8 % (0.0-1.0); EOS # 0.2 10^3/uL (0.0-0.5); EOS % 2.2 % (0.0-3.0); HEMATOCRIT 39.1 % (36.0-47.0); HEMOGLOBIN 12.9 g/dl (12.0-15.5); LYMPH # 1.8 10^3/uL (1.5-5.0); LYMPH % 24.7 % (24.0-44.0); MEAN CORPUSCULAR HEMOGLOBIN 28.9 pg (27.0-33.0); MEAN CORPUSCULAR VOLUME 87.7 fl (80.0-96.0); MONO # 0.6 10^3/uL (0.0-0.8); MONO % 8.7 % (2.0-8.0); NEUTROPHILS # 4.6 10^3/uL (1.5-8.5); NEUTROPHILS % 63.3 % (36.0-66.0); PLATELET COUNT, AUTOMATED 335 10^3/uL (150-450); RED BLOOD COUNT 4.46 10^6/uL (4.00-5.40); WHITE BLOOD COUNT 7.3 10^3/uL (4.0-10.0)
[2021-12-14 17:24] LABS: HEMOGLOBIN A1c 5.5 %
[2021-12-14 17:46] LABS: ALBUMIN 3.5 GM/DL (3.2-5.2); ALT/SGPT 22 U/L (12-78); BILIRUBIN,TOTAL 0.4 MG/DL (0.2-1.0); BLOOD UREA NITROGEN 9 MG/DL (7-18); CALCIUM LEVEL 9.4 MG/DL (8.5-10.1); CARBON DIOXIDE LEVEL 31 MEQ/L (21-32); CHLORIDE LEVEL 105 MEQ/L (98-107); CHOLESTEROL LEVEL 195 MG/DL (<200); CHOLESTEROL RISK RATIO 2.321 (<5); FREE T4 1.12 NG/DL (0.76-1.46); GLOMERULAR FILTRATION RATE > 60.0 (>51); GLUCOSE, FASTING 93 MG/DL (70-100); HDL CHOLESTEROL 84 MG/DL (>40); LDL CHOLESTEROL 98 MG/DL (<100); NON-HDL-C 111 MG/DL; POTASSIUM SERUM 4.6 MEQ/L (3.5-5.1); SODIUM LEVEL 138 MEQ/L (136-145); THYROID STIMULATING HORMONE 0.312 uIU/ML (0.358-3.740); TOTAL PROTEIN 6.6 GM/DL (6.4-8.2); TRIGLYCERIDES LEVEL 67 MG/DL (<150)
== END ==
LOC: M SFHCCLAY 09:54
PROVIDERS: ATTEND Family Medicine
DX: I10 Essential (primary) hypertension (principal); R00.2 Palpitations; R73.01 Impaired fasting glucose

== ENCOUNTER 2021-12-20 14:47 | Emergency (ER) | payer BC ==
[~2021-12-20] VITALS: Ht 160 cm; Wt 84.1 kg
[2021-12-20 15:53] LABS: BASO % 0.2 % (0.0-1.0); EOS # 0.1 10^3/uL (0.0-0.5); EOS % 1.6 % (0.0-3.0); HEMATOCRIT 37.8 % (36.0-47.0); HEMOGLOBIN 12.6 g/dl (12.0-15.5); LYMPH # 1.5 10^3/uL (1.5-5.0); LYMPH % 16.3 % (24.0-44.0); MEAN CORPUSCULAR HEMOGLOBIN 28.8 pg (27.0-33.0); MEAN CORPUSCULAR HGB CONC 33.3 g/dl (32.0-36.5); MEAN CORPUSCULAR VOLUME 86.3 fl (80.0-96.0); MONO # 0.6 10^3/uL (0.0-0.8); MONO % 6.6 % (2.0-8.0); NEUTROPHILS # 6.7 10^3/uL (1.5-8.5); NEUTROPHILS % 74.9 % (36.0-66.0); PLATELET COUNT, AUTOMATED 322 10^3/uL (150-450); RED BLOOD COUNT 4.38 10^6/uL (4.00-5.40); WHITE BLOOD COUNT 8.9 10^3/uL (4.0-10.0)
[2021-12-20] MEDS ORDERED: KETOROLAC 30 MG/ML 1ML VIAL IV ONE (16:10)
[2021-12-20] MEDS ORDERED: diazePAM 10MG/2ML SYRINGE (J3360 PER 5MG) IV ONE (16:10)
[2021-12-20 16:27] LABS: MB/CK RELATIVE INDEX 1.06 (< OR =4)
[2021-12-20 16:30] LABS: ACETAMINOPHEN LEVEL 9.3 UG/ML (10.0-30.0); ALBUMIN 3.4 GM/DL (3.2-5.2); ALT/SGPT 19 U/L (12-78); BILIRUBIN,DIRECT 0.1 MG/DL (0.0-0.2); BILIRUBIN,TOTAL 0.3 MG/DL (0.2-1.0); BLOOD UREA NITROGEN 12 MG/DL (7-18); CALCIUM LEVEL 9.1 MG/DL (8.5-10.1); CARBON DIOXIDE LEVEL 28 MEQ/L (21-32); CHLORIDE LEVEL 108 MEQ/L (98-107); CREATININE FOR GFR 0.57 MG/DL (0.55-1.30); ETHYL ALCOHOL (ETHANOL) < 0.003 % (0.000-0.010); GLOMERULAR FILTRATION RATE > 60.0 (>51); GLUCOSE, FASTING 96 MG/DL (70-100); POTASSIUM SERUM 3.9 MEQ/L (3.5-5.1); SALICYLATE LEVEL < 1.7 MG/DL (5.0-30.0); SODIUM LEVEL 141 MEQ/L (136-145); THYROID STIMULATING HORMONE 0.361 uIU/ML (0.358-3.740); TOTAL PROTEIN 6.3 GM/DL (6.4-8.2)
[2021-12-20 16:47] LABS: AMPHETAMINES LEVEL URINE NEGATIVE (NEGATIVE); BARBITURATES URINE NEGATIVE (NEGATIVE); BENZODIAZEPINES URINE NEGATIVE (NEGATIVE); CANNABINOIDS URINE NEGATIVE (NEGATIVE); COCAINE METABOLITE URINE NEGATIVE (NEGATIVE); METHADONE URINE NEGATIVE (NEGATIVE); OPIATES URINE POSITIVE (NEGATIVE); PHENCYCLIDINE URINE NEGATIVE (NEGATIVE)
[2021-12-20] MEDS ORDERED: CYCL-707 PO (17:40)
[2021-12-20] MEDS ORDERED: NAPR-837 PO (17:40)
[2021-12-20 17:45] VITALS: BP 152/86
== END 2021-12-20 18:02 | disposition home or self-care (01) ==
LOC: M ED 14:47
DX: M62.838 Other muscle spasm (principal); I10 Essential (primary) hypertension; L40.9 Psoriasis, unspecified; K21.9 Gastro-esophageal reflux disease without esophagitis; F41.0 Panic disorder [episodic paroxysmal anxiety]; G47.33 Obstructive sleep apnea (adult) (pediatric); Z86.16 Personal history of COVID-19; Z91.030 Bee allergy status; Z88.8 Allergy status to other drugs, medicaments and biological substances; Z79.899 Other long term (current) drug therapy
CPT/HCPCS: 71045; 72125; 80048; 80076; 80143; 80307; 82077; 82550; 82553; 84443; 84484; 85025; 93005; 93041; 94760; 96374; 96375; 99285; J1885; J3360

== ENCOUNTER → 2022-02-04 | Outpatient (REF) ==
[~2022-02-04] MED LIST changes: +CYCL-707 PO; +NAPR-837 PO
== END ==
LOC: M LABSMTC 09:32
PROVIDERS: ATTEND Family Medicine
DX: Z11.52 Encounter for screening for COVID-19 (principal); Z20.822 Contact with and (suspected) exposure to COVID-19

== ENCOUNTER → 2022-07-11 | Outpatient (REF) | LOC: M LABSMTC 09:50 | PROVIDERS: ATTEND Family Medicine | DX: Z20.822 Contact with and (suspected) exposure to COVID-19 (principal) ==

== ENCOUNTER → 2022-11-14 | Outpatient (REF) | payer BC | LOC: M SFHCWAGY 13:01 | PROVIDERS: ATTEND Specialist | DX: Z12.4 Encounter for screening for malignant neoplasm of cervix (principal) | CPT/HCPCS: 87624; G0123 ==

== ENCOUNTER → 2022-12-15 | Outpatient (CLI) | payer BC | LOC: M RAD 09:26 | PROVIDERS: ATTEND Physician Assistant Medical | DX: Q44.6 Cystic disease of liver (principal) ==

== ENCOUNTER → 2023-01-09 | Outpatient (REF) | LOC: M LABSMTC 10:06 | PROVIDERS: ATTEND Family Medicine | DX: Z11.52 Encounter for screening for COVID-19 (principal) ==

== ENCOUNTER → 2023-01-27 | Outpatient (CLI) | payer BC | LOC: M CLY 11:47 | PROVIDERS: ATTEND Family Medicine | DX: M47.896 Other spondylosis, lumbar region (principal); M54.16 Radiculopathy, lumbar region ==

== ENCOUNTER → 2023-06-21 | Outpatient (CLI) | payer BC | LOC: M CLY 10:09 | PROVIDERS: ATTEND Physician Assistant | DX: M43.16 Spondylolisthesis, lumbar region (principal); M54.50 Low back pain, unspecified ==

== ENCOUNTER 2023-07-20 09:41 | Emergency (ER) | payer BC ==
[~2023-07-20] VITALS: Ht 160 cm; Wt 84.9 kg
[~2023-07-20 09:41] MED LIST changes: +IBUP-1114 PO; +KETO10TAB PO; +LIDO5DIS41 TOP; +NOXI1TAB PO; +PREG25CA PO; +TRIA1CR80 TOP
[2023-07-20 09:55] VITALS: TEMP 98
[2023-07-20] MEDS ORDERED: OMEP-173 (10:01)
[2023-07-20] MEDS ORDERED: METH4PACK (10:01)
[2023-07-20] MEDS ORDERED: BACL10TA2 (10:01)
[2023-07-20] MEDS ORDERED: TRAM50TA2 (10:01)
[2023-07-20 11:29] LABS: BASO % 0.3 % (0.0-1.0); HEMATOCRIT 38.8 % (36.0-47.0); HEMOGLOBIN 13.4 g/dl (12.0-15.5); LYMPH % 9.2 % (24.0-44.0); MEAN CORPUSCULAR HEMOGLOBIN 30.1 pg (27.0-33.0); MEAN CORPUSCULAR HGB CONC 34.5 g/dl (32.0-36.5); MEAN CORPUSCULAR VOLUME 87.2 fl (80.0-96.0); MONO # 0.2 10^3/uL (0.0-0.8); MONO % 1.5 % (2.0-8.0); NEUTROPHILS # 9.9 10^3/uL (1.5-8.5); NEUTROPHILS % 88.5 % (36.0-66.0); PLATELET COUNT, AUTOMATED 368 10^3/uL (150-450); RED BLOOD COUNT 4.45 10^6/uL (4.00-5.40); WHITE BLOOD COUNT 11.2 10^3/uL (4.0-10.0)
[2023-07-20 11:39] LABS: ERYTHROCYTE SEDIMENTATION RATE 39 mm/hr (0-30)
[2023-07-20 11:54] LABS: C REACTIVE PROTEIN QUANTITATIV < 0.40 MG/DL (<1.0)
[2023-07-20 11:56] LABS: BLOOD UREA NITROGEN 8 MG/DL (9-23); CALCIUM LEVEL 9.5 MG/DL (8.5-10.1); CARBON DIOXIDE LEVEL 25 MMOL/L (20-31); CHLORIDE LEVEL 111 MMOL/L (98-107); CREATININE FOR GFR 0.47 MG/DL (0.55-1.30); GLOMERULAR FILTRATION RATE > 60.0 (>51); GLUCOSE, FASTING 119 MG/DL (60-100); POTASSIUM SERUM 4.1 MMOL/L (3.5-5.1); SODIUM LEVEL 143 MMOL/L (136-145)
[2023-07-20] MEDS ORDERED: KETOROLAC 30 MG/ML 1ML VIAL IV ONE (12:25)
[2023-07-20] MEDS ORDERED: KETO10TAB PO (13:34)
[2023-07-20] MEDS ORDERED: ACET-716 PO (13:34)
[2023-07-20 13:58] VITALS: BP 116/64; O2SAT 96
== END 2023-07-20 14:08 | disposition home or self-care (01) ==
LOC: M ED 09:41
DX: M51.26 Other intervertebral disc displacement, lumbar region (principal); I10 Essential (primary) hypertension; J45.909 Unspecified asthma, uncomplicated; F17.200 Nicotine dependence, unspecified, uncomplicated; Z91.030 Bee allergy status; Z88.8 Allergy status to other drugs, medicaments and biological substances; Z79.899 Other long term (current) drug therapy
CPT/HCPCS: 36415; 72128; 72131; 80048; 85025; 85652; 86140; 96374; 99285; J1885

== ENCOUNTER → 2023-07-28 | Outpatient (CLI) | payer BC ==
[~2023-07-28] MED LIST changes: +ACET-716 PO; +BACL10TA2; +METH4PACK; +OMEP-173; +TRAM50TA2
== END ==
LOC: M PLAIMG 15:12
DX: M54.59 Other low back pain (principal)

== ENCOUNTER → 2023-08-02 | Outpatient (REF) | payer BC ==
[2023-08-02 17:29] LABS: BASO % 0.5 % (0.0-1.0); EOS # 0.1 10^3/uL (0.0-0.5); EOS % 0.7 % (0.0-3.0); HEMATOCRIT 37.5 % (36.0-47.0); HEMOGLOBIN 12.5 g/dl (12.0-15.5); LYMPH # 2.1 10^3/uL (1.5-5.0); LYMPH % 24.1 % (24.0-44.0); MEAN CORPUSCULAR HEMOGLOBIN 29.6 pg (27.0-33.0); MEAN CORPUSCULAR HGB CONC 33.3 g/dl (32.0-36.5); MEAN CORPUSCULAR VOLUME 88.7 fl (80.0-96.0); MONO # 0.6 10^3/uL (0.0-0.8); MONO % 7.2 % (2.0-8.0); NEUTROPHILS # 5.9 10^3/uL (1.5-8.5); PLATELET COUNT, AUTOMATED 361 10^3/uL (150-450); RED BLOOD COUNT 4.23 10^6/uL (4.00-5.40); WHITE BLOOD COUNT 8.8 10^3/uL (4.0-10.0)
[2023-08-02 17:34] LABS: INR 1.03; PARTIAL THROMBOPLASTIN TIME 29.1 SECONDS (24.8-34.2); PROTHROMBIN TIME 13.2 SECONDS (12.5-14.5)
[2023-08-02 17:42] LABS: BLOOD UREA NITROGEN 9 MG/DL (9-23); CALCIUM LEVEL 9.5 MG/DL (8.5-10.1); CARBON DIOXIDE LEVEL 28 MMOL/L (20-31); CHLORIDE LEVEL 104 MMOL/L (98-107); CREATININE FOR GFR 0.55 MG/DL (0.55-1.30); GLOMERULAR FILTRATION RATE > 60.0 (>51); GLUCOSE, FASTING 93 MG/DL (60-100); SODIUM LEVEL 140 MMOL/L (136-145)
== END ==
LOC: M SFHCCLAY 13:30
PROVIDERS: ATTEND Physician Assistant
DX: Z01.818 Encounter for other preprocedural examination (principal)

== ENCOUNTER 2024-02-08 09:12 | Emergency (ER) | payer OTHER, BC ==
[~2024-02-08] VITALS: Ht 167.6 cm; Wt 188.0 kg
[2024-02-08 09:12] VITALS: BP 126/82; TEMP 98.4; O2SAT 98
== END 2024-02-08 11:17 | disposition home or self-care (01) ==
LOC: M ED 09:12
DX: S80.02XA Contusion of left knee, initial encounter (principal); M54.50 Low back pain, unspecified; W01.198A Fall on same level from slipping, tripping and stumbling with subsequent striking against other object, initial encounter; Y92.9 Unspecified place or not applicable; Y93.9 Activity, unspecified; Y99.0 Civilian activity done for income or pay; I10 Essential (primary) hypertension; J45.909 Unspecified asthma, uncomplicated; F17.200 Nicotine dependence, unspecified, uncomplicated; Z79.899 Other long term (current) drug therapy; Z88.8 Allergy status to other drugs, medicaments and biological substances; Z91.030 Bee allergy status

== ENCOUNTER → 2024-04-02 | Outpatient (CLI) | payer BC ==
[~2024-04-02] MED LIST changes: +ONDA-282 PO; -ONDA4TAB6 PO
== END ==
LOC: M RAD 08:37
PROVIDERS: ATTEND Physician Assistant Medical
DX: Q44.6 Cystic disease of liver (principal)

== ENCOUNTER → 2024-04-02 | Outpatient (REF) | LOC: M EMP 07:29 | PROVIDERS: ATTEND Family Medicine | DX: R09.89 Other specified symptoms and signs involving the circulatory and respiratory systems (principal) ==

== ENCOUNTER → 2024-06-28 | Outpatient (REF) | payer BC | LOC: M SFHCCLAY 15:52 | PROVIDERS: ATTEND Family Medicine | DX: E05.90 Thyrotoxicosis, unspecified without thyrotoxic crisis or storm (principal); Z53.9 Procedure and treatment not carried out, unspecified reason ==

== ENCOUNTER → 2024-07-04 | Outpatient (REF) | payer BC ==
[2024-07-04 13:03] LABS: ALBUMIN 3.8 G/DL (3.2-5.2); ALKALINE PHOSPHATASE 78 U/L (46-116); ALT/SGPT 17 U/L (7.0-40); AST/SGOT 11 U/L (<34); BILIRUBIN,TOTAL 0.6 MG/DL (0.3-1.2); BLOOD UREA NITROGEN 9 MG/DL (9-23); CALCIUM LEVEL 10.4 MG/DL (8.5-10.1); CARBON DIOXIDE LEVEL 29 MMOL/L (20-31); CHLORIDE LEVEL 107 MMOL/L (98-107); CREATININE FOR GFR 0.55 MG/DL (0.55-1.30); GLOMERULAR FILTRATION RATE > 60.0 (>51); GLUCOSE, FASTING 94 MG/DL (60-100); SODIUM LEVEL 141 MMOL/L (136-145); TOTAL PROTEIN 6.8 G/DL (5.7-8.2)
[2024-07-04 13:04] LABS: FREE T4 1.37 NG/DL (0.89-1.76); THYROID STIMULATING HORMONE 0.332 uIU/ML (0.55-4.78)
[2024-07-04 13:06] LABS: FREE T3 3.8 PG/ML (2.3-4.2)
[2024-07-04 13:08] LABS: BASO % 0.4 % (0.0-1.0); EOS # 0.2 10^3/uL (0.0-0.5); EOS % 1.5 % (0.0-3.0); HEMOGLOBIN 13.6 g/dl (12.0-15.5); LYMPH # 2.3 10^3/uL (1.5-5.0); LYMPH % 22.1 % (24.0-44.0); MEAN CORPUSCULAR HEMOGLOBIN 30.1 pg (27.0-33.0); MEAN CORPUSCULAR HGB CONC 33.2 g/dl (32.0-36.5); MEAN CORPUSCULAR VOLUME 90.7 fl (80.0-96.0); MONO # 0.7 10^3/uL (0.0-0.8); MONO % 6.7 % (2.0-8.0); NEUTROPHILS # 7.1 10^3/uL (1.5-8.5); NEUTROPHILS % 68.9 % (36.0-66.0); PLATELET COUNT, AUTOMATED 392 10^3/uL (150-450); RED BLOOD COUNT 4.52 10^6/uL (4.00-5.40); WHITE BLOOD COUNT 10.3 10^3/uL (4.0-10.0)
== END ==
LOC: M SFHCCLAY 10:03
PROVIDERS: ATTEND Family Medicine
DX: E05.90 Thyrotoxicosis, unspecified without thyrotoxic crisis or storm (principal)

== ENCOUNTER → 2024-07-09 | Outpatient (CLI) | payer BC ==
[2024-07-09 13:10] LABS: APPEARANCE, URINE CLOUDY (CLEAR); BACTERIA, URINE AUTO 2+ (NEGATIVE); BILIRUBIN, URINE AUTO NEGATIVE (NEGATIVE); BLOOD, URINE BLOOD 3+ (NEGATIVE); COLOR, URINE YELLOW (YELLOW); GLUCOSE, URINE (UA) AUTO NEGATIVE (NEGATIVE); KETONE, URINE AUTO NEGATIVE (NEGATIVE); LEUKOCYTE ESTERASE, URINE AUTO 3+ (NEGATIVE); MUCUS, URINE SMALL (NEGATIVE); NITRITE, URINE AUTO NEGATIVE (NEGATIVE); PROTEIN, URINE AUTO 1+ mg/dL (NEGATIVE); RBC, URINE AUTO TNTC /HPF (0-3); SPECIFIC GRAVITY URINE AUTO 1.006 (1.002-1.035); SQUAMOUS EPITHELIAL CELL UR AU 0 /HPF (0-6); UROBILINOGEN, URINE AUTO 0.2 mg/dL (0.0-2.0); WBC, URINE AUTO TNTC /HPF (0-3)
== END ==
LOC: M LAB 12:40
PROVIDERS: ATTEND Family Medicine
DX: R30.0 Dysuria (principal)

== ENCOUNTER → 2024-07-17 | Outpatient (CLI) | payer BC | LOC: M RAD 12:43 | PROVIDERS: ATTEND Family Medicine | DX: R10.2 Pelvic and perineal pain (principal) ==

== ENCOUNTER → 2025-01-21 | Outpatient (REF) | payer BC ==
[2025-01-21 19:53] LABS: ALBUMIN 3.8 G/DL (3.2-5.2); ALKALINE PHOSPHATASE 91 U/L (35-104); ALT/SGPT 23 U/L (7.0-40); AST/SGOT 14 U/L (<34); BILIRUBIN,TOTAL 0.5 MG/DL (0.3-1.2); BLOOD UREA NITROGEN 11 MG/DL (9-23); CALCIUM LEVEL 9.7 MG/DL (8.5-10.1); CARBON DIOXIDE LEVEL 29 MMOL/L (20-31); CHLORIDE LEVEL 104 MMOL/L (98-107); CREATININE FOR GFR 0.54 MG/DL (0.55-1.30); GLOMERULAR FILTRATION RATE > 60.0 (>51); GLUCOSE, FASTING 75 MG/DL (60-100); POTASSIUM SERUM 4.6 MMOL/L (3.5-5.1); SODIUM LEVEL 141 MMOL/L (136-145); TOTAL PROTEIN 7.1 G/DL (5.7-8.2)
[2025-01-21 19:55] LABS: FREE T4 1.36 NG/DL (0.89-1.76); THYROID STIMULATING HORMONE 0.507 uIU/ML (0.55-4.78)
== END ==
LOC: M SFHCCLAY 14:45
PROVIDERS: ATTEND Family Medicine
DX: E04.1 Nontoxic single thyroid nodule (principal); I10 Essential (primary) hypertension

== ENCOUNTER 2025-06-24 07:38 | Day surgery (SDC) | payer BC ==
[~2025-06-24] VITALS: Ht 160 cm; Wt 81.6 kg
[~2025-06-24 07:38] MED LIST changes: +D 50CAP3 PO; -DULO1CAP5; +DULO1CAP5 PO; +LIDO1ADH93 TOP; -LIDO5DIS41 TOP; +METO1TAB32 PO; -OMEP-173; +OMEP-173 PO; -PREG25CA PO; +PREG25CA63 PO
[2025-06-24 08:50] VITALS: TEMP 97.6
[2025-06-24 09:14] VITALS: BP 110/67; O2SAT 99
== END 2025-06-24 09:15 | disposition home or self-care (01) ==
LOC: M OPP 07:38
PROVIDERS: ATTEND Internal Medicine Gastroenterology
DX: Z12.11 Encounter for screening for malignant neoplasm of colon (principal); K57.30 Diverticulosis of large intestine without perforation or abscess without bleeding; K64.8 Other hemorrhoids; Z88.8 Allergy status to other drugs, medicaments and biological substances; Z91.030 Bee allergy status; Z79.899 Other long term (current) drug therapy; F17.210 Nicotine dependence, cigarettes, uncomplicated

== ENCOUNTER → 2025-10-01 | Outpatient (CLI) | payer BC | LOC: M RAD 07:52 | PROVIDERS: ATTEND Family Medicine | DX: K76.89 Other specified diseases of liver (principal) ==